=== PATIENT | male | born 2000 | race Caucasian/White ===

== ENCOUNTER 2021-01-11 06:35 | Emergency (ER) | payer OTHER ==
[2021-01-11 08:10] LABS: HEMOGLOBIN 14.5 gm/dl (14.0-17.5); RED BLOOD COUNT 4.46 M/UL (4.20-5.50); WHITE BLOOD COUNT 3.8 K/UL (4.5-11.0)
[2021-01-11 08:20] LABS: BUN/CREATININE RATIO 13 (0-10)
== END 2021-01-11 14:54 | disposition short-term general hospital (02) ==
LOC: ER1 06:35
PROVIDERS: Emergency Medicine
DX: J40 Bronchitis, not specified as acute or chronic (principal); F32.9 Major depressive disorder, single episode, unspecified; F17.200 Nicotine dependence, unspecified, uncomplicated; Z20.822 Contact with and (suspected) exposure to COVID-19
CPT/HCPCS: 71045; 80053; 80307; 82550; 82553; 83874; 84484; 85025; 85379; 93005; 99285; U0002